=== PATIENT | male | born 1995 | race Hispanic/Latino ===

== ENCOUNTER 2017-03-25 22:40 | Emergency (ER) | payer BC, SELFPAY | END 2017-03-25 23:23 | disposition home or self-care (01) | LOC: ERS 22:40 | DX: Q89.2 Congenital malformations of other endocrine glands (principal) | CPT/HCPCS: 99283 ==

== ENCOUNTER 2017-03-29 15:59 | Inpatient (IN) | payer SELFPAY ==
[2017-03-29] MEDS ORDERED: ISOVUE-370 76%-LOCM 1 ML ONE (16:10)
[2017-03-29] MEDS ORDERED: Clindamycin/D5W 900 mg/50 ml Premix Bag ONE (17:35)
[2017-03-29 18:09] LABS: #Eosinphils 0.4 thou/uL (0.0-0.7); #Lymphocytes 1.2 thou/uL (1.20-3.40); #Monocytes 0.8 thou/uL (0.11-0.59); #Neutrophils 9.9 thou/uL (1.40-6.50); %Basophils 0.4 % (0.0-1.0); %Eosinophils 3.1 % (0.0-10.0); %Lymphocytes 9.6 % (21.0-51.0); %Monocytes 6.6 % (0.0-10.0); Hematocrit 47.4 % (42.0-52.0); Mean Platelet Volume 8.2 fL (7.4-10.4); White Blood Cell (WBC) Count 12.3 thou/uL (4.8-10.8)
[2017-03-29 18:22] LABS: ALT (SGPT) 36 U/L (8-55); AST (SGOT) 28 U/L (5-34); Alkaline Phosphatase 85 U/L (40-150); Anion Gap 12 mmol/L (10-20); BUN (Urea Nitrogen) 9 mg/dL (8.9-20.6); Bilirubin, Total 0.5 mg/dL (0.2-1.2); Calc. Creatinine Clearance 0 mL/min (70-130); Calcium 9.6 mg/dL (7.8-10.44); Carbon Dioxide 28 mmol/L (22-29); Chloride 103 mmol/L (98-107); Estimated GFR-MDRD Greater than 90; Globulin 3.7 g/dL (2.4-3.5)
[2017-03-29] MEDS ORDERED: Ibuprofen 200 MG TAB ONE (19:22)
[2017-03-29] MEDS ORDERED: Dexamethasone 4 mg/ml Vial ONE (19:29)
[2017-03-29] MEDS ORDERED: Ondansetron HCl/PF 4 MG/2 ML Vial ONE (19:36)
--- NOTE | 2017-03-29 19:51 | CT ---
CT NECK SOFT TISSUES WITH CONTRAST: HISTORY: A 21-year-old male with submandibular induration and swelling. No improvement with antibiotic s. Rule out abscess. FINDINGS: There are numerous bilaterally enlarged lymph nodes at levels 1A, 1B, 2, 3, and 4. The right level 1B submandibular lymph nodes are especially enlarged, displacing the right submandibular gland, such that it is difficult to distinguish the submandibular gland from the enlarged nodes. Some of the e nlarged level 1A submental lymph nodes have indistinct margins and are difficult to distinguish from surrounding edema. There is extensive, severe fat stranding representing edema throughout the subm andibular space and in the adjacent soft tissues, superficial to the platysma muscle, surrounding th e submandibular space. The edema also extends into the visceral space. The right internal jugular vein is mildly narrowed by enlarged right-sided level 2 lymph nodes anterior and posterior to it. T here is no organized, rim-enhancing fluid collection to indicate abscess. No evidence of retrophary ngeal abscess. The lingual tonsil is enlarged. The larynx is normal. No periapical cystic lesions are visualized in the mandible. No osseous cortical breakthrough of the mandible. There is an asy mmetrically greater degree of soft tissue edema effacing the right lateral pharyngeal recess at the nasopharynx compared to the left. The parapharyngeal, parotid, and laundry route driver spaces are normal. IMPRESSION: 1. Edema is evidence for cellulitis throughout the submandibular space, visceral space, and superfi cial spaces around the submandibular space, with severe reactive cervical lymphadenopathy. 2. No evidence of abscess. POS: [facility]
[2017-03-29] MEDS ORDERED: Ondansetron HCl/PF 4 MG/2 ML Vial IVP PRN (20:27)
[2017-03-29] MEDS ORDERED: Bisacodyl 10 MG SUPP PR PRN (20:27)
[2017-03-29] MEDS ORDERED: Acetaminophen 325 MG TAB PO PRN (20:27)
[2017-03-29] MEDS ORDERED: HYDROcodone/Acetaminophen 5/325 mg Tablet PO PRN (20:27)
[2017-03-29] MEDS ORDERED: Calcium Carbonate 500 MG ChewTAB PO PRN (20:27)
[2017-03-29] MEDS ORDERED: Morphine Sulfate 2 MG/ML SYRINGE SLOW IVP PRN (20:35)
[2017-03-29] MEDS: Sodium Chloride 0.9% 1,000 ML IV SCH (22:00)
[2017-03-29 22:47] VITALS: BMI 22.2
[2017-03-29] MEDS ORDERED: Dexamethasone 4 MG in Sodium Chloride 0.9% 50 ML IVPB SCH (23:59)
[2017-03-30] MEDS: Clindamycin/D5W 600 MG in Premix Bag 1 BAG IVPB SCH ×3 (01:12→11:35)
[2017-03-30] MEDS: Dexamethasone 4 mg/ml Vial SLOW IVP SCH ×3 (01:12→11:37)
[2017-03-30 06:00] LABS: #Lymphocytes 0.8 thou/uL (1.20-3.40); #Monocytes 0.2 thou/uL (0.11-0.59); #Neutrophils 12.4 thou/uL (1.40-6.50); %Basophils 0.1 % (0.0-1.0); %Eosinophils 0.1 % (0.0-10.0); %Lymphocytes 6.1 % (21.0-51.0); %Monocytes 1.6 % (0.0-10.0); Hematocrit 40.9 % (42.0-52.0); Mean Platelet Volume 8.6 fL (7.4-10.4); Red Blood Cell (RBC) Count 4.39 mill/uL (4.70-6.10); White Blood Cell (WBC) Count 13.5 thou/uL (4.8-10.8)
[2017-03-30 06:31] LABS: Anion Gap 10 mmol/L (10-20); BUN (Urea Nitrogen) 13 mg/dL (8.9-20.6); Calc. Creatinine Clearance 153 mL/min (70-130); Calcium 9.1 mg/dL (7.8-10.44); Carbon Dioxide 25 mmol/L (22-29); Chloride 106 mmol/L (98-107); Estimated GFR-MDRD Greater than 90
--- NOTE | 2017-03-30 06:40 | HP ---
CHIEF COMPLAINT: Pain in the neck area. HISTORY OF PRESENT ILLNESS: This is a 21-year-old male who noticed a bump in the submandibular area . He noticed that the bump had become bigger and started hurting him. He had come to the ER on and was discharged for possible mild cellulitis with clindamycin. He took the medication as p rescribed for the last couple of days, but the pain, swelling and the stiffness of his neck worsened and hence he came to the hospital for further evaluation and treatment. The patient reports some m ild fever, no nausea, no vomiting, no chills. Today, we did a CT scan of the neck, which showed halie lulitis throughout the submandibular space and edema and severe reactive cervical lymphadenopathy, n o evidence of abscess. ER physician already spoke to Oral [facility]illof[facility] Surgery and ENT who recomme nded IV antibiotics with some IV steroids. He has been admitted for that. PAST MEDICAL HISTORY: None. PAST SURGICAL HISTORY: None. FAMILY HISTORY: None. SOCIAL HISTORY: Uses marijuana. No cigarettes. No alcohol. ALLERGIES: No known drug allergies. FAMILY HISTORY: Negative for diabetes and hypertension. REVIEW OF SYSTEMS: Significant for low grade fever, some chills. Otherwise, no headache, no eye pa in, no hearing loss, complaints of neck pain, cannot even turn his neck, limited range of motion. N o chest pain, no shortness of breath. Some difficulty swallowing. No diarrhea, dysuria or polyuria . No memory or mood changes PHYSICAL EXAMINATION: VITAL SIGNS: Blood pressure is 133/75, temperature is 99.6, respirations 16. GENERAL: The patient is lying in bed in mild distress, because of the pain. HEENT: Atraumatic, normocephalic. Pupils are equally round, react to light. Extraocular movements intact. Mucous membranes moist. Oral examination does not reveal any dental abscesses. NECK: Some submandibular lymphadenopathy noted. There is no erythema, but there is severe tenderne ss and there is swelling appreciated as well. CHEST: Breath sounds are heard. No rales or rhonchi. CARDIAC: Heart S1, S2, no murmurs or gallops. ABDOMEN: Soft. EXTREMITIES: No cyanosis, clubbing or edema. Distal pulses present. NEUROLOGIC: Alert, awake, oriented. No cranial deficits. No sensorimotor deficits. LABORATORY DATA AND IMAGING: WBC count is 12.3, hemoglobin is 16, potassium is 3.9, creatinine 0.7. CT neck as mentioned ____ cellulitis and submandibular space infection with edema and reactive cer vical lymphadenopathy. ASSESSMENT AND PLAN: 1. Cellulitis, which failed outpatient treatment. We will do blood cultures and give the patient I V clindamycin, IV vancomycin and IV dexamethasone. We will follow the blood cultures. Consult Dr. Amaya and give morphine alternating with Lortab for pain control. 2. Marijuana use, patient has been counseled. 3. Sequential compression devices for deep venous thrombosis prophylaxis. I will monitor the labs and do the need for.
[2017-03-30] MEDS ORDERED: Vancomycin HCl 1 GM in Premix Bag 1 BAG IVPB SCH (08:00)
[2017-03-30 08:27] VITALS: TEMP 98.3
[2017-03-30] MEDS ORDERED: FLU VACC QS2017-18 36 mo. & older 0.5 ML SYRINGE IM ONE (09:00)
[2017-03-30] MEDS: Sodium Chloride 0.9% 1,000 ML IV SCH ×2 (10:07→11:34)
--- NOTE | 2017-03-30 10:36 | PDOC.PN ---
- Subjective Encounter Start Date: 03/30/17 Encounter Start Time: 10:34 Patient seen and examined. No new complaints. No overnight events - Objective MAR Reviewed: Yes Vital Signs & Weight: Vital Signs (12 hours) Temp Pulse Resp BP Pulse Ox 03/30/17 08:50 98.3 F 58 L 16 03/30/17 07:37 98.3 F 58 L 16 102/59 L 98 03/30/17 04:00 97.5 F L 61 18 102/62 96 03/29/17 22:48 98 Weight Weight 155 lb I&O: 03/29/17 03/30/17 03/31/17 06:59 06:59 06:59 Intake Total 240 Balance 240 Result Diagrams: 03/30/17 04:45 03/30/17 04:45 Phys Exam - Physical Examination Constitutional: NAD HEENT: PERRLA submandibular glands palpable Neck: no nodes Respiratory: no rales Cardiovascular: no significant murmur Gastrointestinal: non-tender Musculoskeletal: pulses present Neurological: moves all 4 limbs Psychiatric: A&O x 3 Skin: normal turgor Dx/Plan (1) Cellulitis of submandibular region Code(s): K12.2 - CELLULITIS AND ABSCESS OF MOUTH Status: Acute (2) Tetrahydrocannabinol (THC) use disorder, mild, abuse Code(s): F12.10 - CANNABIS ABUSE, UNCOMPLICATED Status: Acute - Plan * cont iv abx and dexamethasone * f/u dr hair recommendations
[2017-03-30 11:48] VITALS: BP 98/56
[2017-03-30] MEDS ORDERED: Dexamethasone 10 MG/ML VIAL SLOW IVP SCH (14:15)
--- NOTE | 2017-03-30 17:41 | CON ---
DATE OF CONSULTATION: 03/30/2017 REASON FOR CONSULTATION: Submental inflammatory process. HISTORY OF PRESENT ILLNESS: A 21-year-old first admission to [facility] who has no past medical history and has had an inflammatory process with swelling and submental area with progressively worsening inflammatory process for the past 2 weeks. The patient was seen in the emergency room and given clindamycin with worsening of the process and then he presented with mild temperature elevation. No headaches, no visual symptoms. No cough or sputum production or chest pain. No abdominal pain, diarrhea, no genitourinary symptoms, no other joint symptoms. No skin disorder outside the area of involvement. No neurological symptoms. PAST MEDICAL HISTORY: Negative. PAST SURGICAL HISTORY: Negative. FAMILY HISTORY: None. SOCIAL HISTORY: He works but does not study. Denies IV drug use. No cigarette smoking. Does not drink alcoholic beverages. ALLERGIES: None. CURRENT MEDICATIONS: Clindamycin, vancomycin, and p.r.n. meds. PHYSICAL EXAMINATION: VITAL SIGNS: T-max 99.2, currently 98.3. BP 198/56, pulse 67, respirations 16 , O2 sat was 98%. GENERAL: Appears in no distress: No skin abnormalities noted. No lymphadenopathy. He does have an area of induration and swelling in the submental region measuring about 2.5-3 cm. HEENT: Ocular movements are conjugate. Oral cavity essentially normal. Submental area is moderately tender. No erythema noted, but patient has a garcia , which hinders evaluation of the skin. LUNGS: Clear to auscultation and percussion. HEART: Normal. ABDOMEN: Soft, not distended or tender. No ascites. No bladder distention. GENITOURINARY: No genital abnormalities. EXTREMITIES: No joint inflammatory activity. NEUROLOGIC: Nonfocal. LABORATORY DATA: White cell count is up to 13.5, hemoglobin 13, platelets 250 with 92% neutrophils. Chemistry was normal, globulin 3.7. Glucose 159. Microbiology with 2 sets blood cultures thus far no growth. CT of the neck showed bilateral enlarged lymph nodes, displacing the right submandibular gland , severe fat stranding throughout submandibular space and adjacent soft tissues. Right internal jugular vein mildly narrowed by enlarged right-sided level 2 lymph nodes, no fluid collection noted. No retropharyngeal abscess. No mandibular cortical abnormalities noted. ASSESSMENT: Submental inflammatory process with lymphadenitis with improvement with antimicrobial therapy. DISCUSSION: Most likely scenario is periapical infection with extension into the submental space/submandibular space with reactive lymphadenitis. An atypical mycobacterial infection or other pyogenic infection such as secondary to Staphylococcus aureus, less likely but not ruled out. Recommend continuation of oral Augmentin for a protracted period of time, we will start with a 3 weeks' course. He needs to follow up with dentist and follow up with ourselves in about 3-4 weeks after discharge, check HIV serology, RPR and hepatitis C. MTDD
--- NOTE | 2017-03-30 22:57 | DIS ---
DATE OF ADMISSION: 03/29/2017 DATE OF DISCHARGE: 03/30/2017 DIAGNOSES ON DISCHARGE: Submandibular cellulitis with reactive cervical lymphadenopathy and marijua na use. DISCHARGE MEDICATIONS: Augmentin 875 mg p.o. b.i.d. for 21 days. CONSULTANTS ON THE CASE: ENT and Dr. Amaya. BRIEF HOSPITAL COURSE: A 21-year-old pleasant gentleman came into the hospital with cellulitis of t he submandibular area. Please refer to the admitting H and P for further details. The CT scan of t he neck showed cellulitis throughout the submandibular space and edema and severe reactive cervical lymphadenopathy, and no evidence of abscess. I put the patient on IV clindamycin and IV vancomycin with IV steroids. The patient improved well with this treatment. Dr. Amaya evaluated the patient a nd said that the patient could go home on p.o. Augmentin for 21 days. Patient right now is medicall y stable to be discharged. He is asked to follow up with Dr. Amaya as an outpatient, asked to come back to the emergency room in case symptoms recur. Total time for this discharge took 35 minutes.
== END 2017-03-30 15:14 | disposition home or self-care (01) | DRG 159 ==
LOC: ERS 15:59 → T4-A 19:20 → OBSVTOIN 19:20
PROVIDERS: ADMIT Internal Medicine; ATTEND Internal Medicine
DX: K12.2 Cellulitis and abscess of mouth (principal); R13.10 Dysphagia, unspecified; I88.8 Other nonspecific lymphadenitis; M43.6 Torticollis; F12.10 Cannabis abuse, uncomplicated
CPT/HCPCS: 36415; 70491; 80048; 80053; 85025; 86780; 87040; 87389; J1100; J2270; J2405; J3370; J3490

== ENCOUNTER 2025-03-10 13:55 | Emergency (ER) | payer OTHER ==
[2025-03-10 14:12] LABS: #Basophils 0.07 10x3/uL (0.0-0.2); #Eosinophils Less than 0.03 10x3/uL (0.0-0.7); #Monocytes 0.95 10x3/uL (0.11-0.59); #Neutrophils 15.36 10x3/uL (1.40-6.50); %Basophils 0.4 % (0.0-1.0); %Eosinophils 0.1 % (0.0-10.0); %Lymphocytes 7.1 % (21.0-51.0); %Monocytes 5.4 % (0.0-10.0); %Neutrophils 86.5 % (42.0-75.0); Hematocrit 42.7 % (42.0-52.0); Hemoglobin 14.6 g/dL (14.0-18.0); Mean Corpuscular Hemoglobin 29.4 pg (27.0-31.0); Mean Corpuscular Volume 86.1 fL (78.0-98.0); Platelet Count 320 10x3/uL (130-400); Red Blood Cell (RBC) Count 4.96 mill/uL (4.70-6.10); White Blood Cell (WBC) Count 17.73 10x3/uL (4.8-10.8)
[2025-03-10] MEDS ORDERED: Iopamidol-370 76% 500 ML MDV (1 ML CHARGE) ONE (14:22)
[2025-03-10 14:42] LABS: ALT (SGPT) 27 U/L (Less than 45); AST (SGOT) 26 U/L (11-34); Albumin 4.1 g/dL (3.1-4.5); Alkaline Phosphatase 90 U/L (40-110); Anion Gap 16 mmol/L (10-20); BUN (Urea Nitrogen) 17 mg/dL (8.9-20.6); Bilirubin, Total 0.8 mg/dL (0.3-1.2); Calc. Creatinine Clearance 0 mL/min (70-130); Calcium 9.5 mg/dL (7.8-10.44); Carbon Dioxide 23 mmol/L (22-29); Chloride 94 mmol/L (98-107); Globulin 2.9 g/dL (2.4-3.5); Glucose 710 mg/dL (70-105); Potassium 4.3 mmol/L (3.5-5.1); Sodium 129 mmol/L (136-145)
[2025-03-10 15:33] LABS: #Basophils 0.05 10x3/uL (0.0-0.2); #Eosinophils Less than 0.03 10x3/uL (0.0-0.7); #Monocytes 0.95 10x3/uL (0.11-0.59); #Neutrophils 14.41 10x3/uL (1.40-6.50); %Basophils 0.3 % (0.0-1.0); %Eosinophils 0.1 % (0.0-10.0); %Lymphocytes 8.1 % (21.0-51.0); %Monocytes 5.6 % (0.0-10.0); %Neutrophils 85.5 % (42.0-75.0); Hematocrit 41.1 % (42.0-52.0); Hemoglobin 14.5 g/dL (14.0-18.0); Mean Corpuscular Hemoglobin 30.2 pg (27.0-31.0); Mean Corpuscular Volume 85.6 fL (78.0-98.0); Platelet Count 317 10x3/uL (130-400); Red Blood Cell (RBC) Count 4.80 mill/uL (4.70-6.10); White Blood Cell (WBC) Count 16.86 10x3/uL (4.8-10.8)
[2025-03-10] MEDS ORDERED: diphenhydrAMINE 50 MG/ML VIAL ONE (15:38)
[2025-03-10 17:56] LABS: ALT (SGPT) 24 U/L (Less than 45); AST (SGOT) 15 U/L (11-34); Albumin 3.6 g/dL (3.1-4.5); Alkaline Phosphatase 81 U/L (40-110); Anion Gap 13 mmol/L (10-20); BUN (Urea Nitrogen) 15 mg/dL (8.9-20.6); Bilirubin, Total 0.6 mg/dL (0.3-1.2); Calc. Creatinine Clearance 0 mL/min (70-130); Calcium 8.6 mg/dL (7.8-10.44); Carbon Dioxide 23 mmol/L (22-29); Chloride 100 mmol/L (98-107); Globulin 2.7 g/dL (2.4-3.5); Glucose 405 mg/dL (70-105); Potassium 4.0 mmol/L (3.5-5.1); Sodium 132 mmol/L (136-145)
[2025-03-10] MEDS ORDERED: Vancomycin 1.5 GM / NS 500ML VIAL-2-BAG IVPB SCH (18:45)
[2025-03-10] MEDS ORDERED: Lidocaine 1% w/Epinephrine 1:100K 20 ML VIAL ONE (21:47)
[2025-03-10 22:21] LABS: Bacteria/HPF None Seen HPF (None Seen); CAUTI Indications for Culture Dysuria,urgency,freq; Glucose, Urine (Dipstick) Greater than 1000 mg/dL (Negative); Leukocyte Negative Leu/uL (Negative); Protein, Urine (Dipstick) Negative (Neg-Trace); RBC/HPF None Seen HPF (0-3); Specific Gravity, Urine 1.036 (1.002-1.036); WBC/HPF None Seen HPF (0-3)
[2025-03-10 22:23] LABS: Urine Culture Reflex No No
== END 2025-03-10 22:15 | disposition home or self-care (01) ==
LOC: ERS 13:55
DX: E11.9 Type 2 diabetes mellitus without complications (principal); L02.31 Cutaneous abscess of buttock
CPT/HCPCS: 10060; 36415; 36416; 74177; 81001; 82010; 83605; 87040; 94760; 96365; 96366; 96372; 96375; J1200; J1815; J7030; Q9967